=== PATIENT | female | born 1955 | race Caucasian/White ===

== ENCOUNTER 2018-01-19 20:09 | Emergency (ER) | payer OTHER ==
[~2018-01-19] VITALS: Ht 167.6 cm; Wt 132.4 kg
[~2018-01-19 20:09] MED LIST: GLUCOPHAGE500 MG PO; GLUCOSAMINE &1 EAC1 PO; LISINOPRIL10 MG PO; LISINOPRIL5 MG PO; MOTRIN IB200 MG PO; NAPROXEN375 MG PO; NORCO 5-325 TA1 EACH PO; PAROXETINE HCL20 MG PO; TRIAMTERENE-HC1 EAC1 PO
[2018-01-19] MEDS ORDERED: FLUOXETINE HCL20 MG PO (20:31)
--- NOTE | 2018-01-20 16:57 | EKG ---
[facility] [address] [facility] [place] [address] Signed Normal sinus rhythm Left axis deviation Minimal voltage criteria for LVH, may be normal variant Abnormal ECG No previous ECGs available Confirmed by SELAM BURCIAGA MD ([id number]) on 01/20/2018 4:57:04 PM Electronically Signed By: SELAM BURCIAGA MD 01/20/18 1657 PATIENT NAME: FREIDA WU Electrocardiogram DATE OF : 53 PHYSICIAN: SELAM BURCIAGA MD REPORT #: [id number] REPORT IS CONFIDENTIAL AND NOT TO BE RELEASED WITHOUT AUTHORIZATION
== END 2018-01-19 21:36 | disposition home or self-care (01) ==
LOC: ED 20:09
DX: R07.89 Other chest pain (principal); I10 Essential (primary) hypertension; E11.9 Type 2 diabetes mellitus without complications; Z87.891 Personal history of nicotine dependence; Z79.84 Long term (current) use of oral hypoglycemic drugs; Z79.899 Other long term (current) drug therapy
CPT/HCPCS: 71045; 80053; 82550; 82553; 83874; 84484; 85025; 85379; 85610; 85730; 93005; 93010; 99285